=== PATIENT | female | born 1955 | race Caucasian/White ===

== ENCOUNTER → 2016-10-19 | Outpatient (CLI) | payer BC ==
--- NOTE | 2016-10-20 08:04 | MM ---
Reason for exam: screening (asymptomatic). Last mammogram was performed 1 year ago. History: Patient is postmenopausal. Family history of premenopausal breast cancer in mother at age 32. Benign US breast aspiration single RT of the right breast, October 19, 2015. Benign left mammotome panel of the left breast, September 15, 2006. Physical Findings: A clinical breast exam by your physician is recommended on an annual basis and results should be correlated with mammographic findings. MG Screening Mammo w CAD Bilateral CC and MLO view(s) were taken. Prior study comparison: October 19, 2015, right breast MG diagnostic mammo RT wo CAD. September 23, 2015, bilateral MG 3d screening mammo w/cad. There are scattered fibroglandular densities. Finding: There are typically benign grouped/clustered calcifications in the left breast. Previous ultrasound biopsy in the right and left breast. Increase in number of calcifications since October 19, 2015 and September 23, 2015. ASSESSMENT: Probably benign, BI-RAD 3 RECOMMENDATION: Follow-up diagnostic mammogram of the left breast in 6 months.
== END | disposition home or self-care (01) ==
LOC: RADMAMWWP 08:05
PROVIDERS: ATTEND Obstetrics & Gynecology
DX: Z12.31 Encounter for screening mammogram for malignant neoplasm of breast (principal)

== ENCOUNTER → 2017-04-21 | Outpatient (CLI) | payer BC ==
--- NOTE | 2017-04-21 09:29 | MM ---
Reason for exam: follow-up at short interval from prior study. Last mammogram was performed 6 months ago. History: Patient is postmenopausal. Family history of premenopausal breast cancer in mother at age 32. Benign US breast aspiration single RT of the right breast, October 19, 2015. Benign left mammotome panel of the left breast, September 15, 2006. Physical Findings: Nurse did not find any significant physical abnormalities on exam. MG Diagnostic Mammo LT w CAD CC, MLO, ML, CC with magnification, and ML with magnification view(s) were taken of the left breast. Prior study comparison: October 19, 2016, bilateral MG screening mammo w CAD. September 23, 2015, bilateral MG 3d screening mammo w/cad. The breast tissue is heterogeneously dense. This may lower the sensitivity of mammography. On magnification views scattered benign appearing calcifications, no suspicious groups. These results were verbally communicated with the patient and result sheet given to the patient on 04/21/17. ASSESSMENT: Benign, BI-RAD 2 RECOMMENDATION: Return to routine screening mammogram schedule for both breasts. Back on schedule for October 2017.
== END | disposition home or self-care (01) ==
LOC: RADMAMWWP 07:42
PROVIDERS: ATTEND Obstetrics & Gynecology
DX: R92.8 Other abnormal and inconclusive findings on diagnostic imaging of breast (principal)

== ENCOUNTER → 2017-10-20 | Outpatient (CLI) | payer BC ==
--- NOTE | 2017-10-23 11:05 | MM ---
Reason for exam: screening (asymptomatic). Last mammogram was performed 6 months ago. History: Patient is postmenopausal. Family history of premenopausal breast cancer in mother at age 32. Benign US breast aspiration single RT of the right breast, October 19, 2015. Benign left mammotome panel of the left breast, September 15, 2006. Physical Findings: A clinical breast exam by your physician is recommended on an annual basis and results should be correlated with mammographic findings. MG Screening Mammo w CAD Bilateral CC and MLO view(s) were taken. Prior study comparison: April 21, 2017, left breast MG diagnostic mammo LT w CAD. October 19, 2016, bilateral MG screening mammo w CAD. The breast tissue is heterogeneously dense. This may lower the sensitivity of mammography. Finding: There are typically benign round calcifications in both breasts. Previous mammotome biopsy in the right and left breast. There is no discrete abnormality. ASSESSMENT: Benign, BI-RAD 2 RECOMMENDATION: Routine screening mammogram of both breasts in 1 year.
== END | disposition home or self-care (01) ==
LOC: RADMAMWWP 07:47
PROVIDERS: ATTEND Family Medicine
DX: Z12.31 Encounter for screening mammogram for malignant neoplasm of breast (principal)
CPT/HCPCS: 77067

== ENCOUNTER → 2018-11-08 | Outpatient (CLI) | payer BC ==
--- NOTE | 2018-11-09 10:04 | MM ---
Reason for exam: screening (asymptomatic). Last mammogram was performed 1 year and 1 month ago. History: Patient is postmenopausal. Family history of breast cancer in maternal aunt and premenopausal breast cancer in mother at age 32. Benign US breast aspiration single RT of the right breast, October 19, 2015. Benign left mammotome panel of the left breast, September 15, 2006. Physical Findings: A clinical breast exam by your physician is recommended on an annual basis and results should be correlated with mammographic findings. MG Screening Mammo w CAD Bilateral CC and MLO view(s) were taken. Prior study comparison: October 20, 2017, bilateral MG screening mammo w CAD. April 21, 2017, left breast MG diagnostic mammo LT w CAD. The breast tissue is heterogeneously dense. This may lower the sensitivity of mammography. No suspicious abnormality. Bilateral biopsy markers noted. ASSESSMENT: Negative, BI-RAD 1 RECOMMENDATION: Routine screening mammogram of both breasts in 1 year.
== END ==
LOC: RADMAMWWP 07:50
PROVIDERS: ATTEND Family Medicine
DX: Z12.31 Encounter for screening mammogram for malignant neoplasm of breast (principal)
CPT/HCPCS: 77067

== ENCOUNTER → 2019-11-12 | Outpatient (CLI) | payer BC ==
--- NOTE | 2019-11-13 11:21 | MM ---
Reason for exam: screening (asymptomatic). Last mammogram was performed 1 year ago. History: Patient is postmenopausal. Family history of breast cancer in maternal aunt and premenopausal breast cancer in mother at age 32. Benign US breast aspiration single RT of the right breast, October 19, 2015. Benign left mammotome panel of the left breast, September 15, 2006. Physical Findings: A clinical breast exam by your physician is recommended on an annual basis and results should be correlated with mammographic findings. MG Screening Mammo w CAD Bilateral CC and MLO view(s) were taken. Prior study comparison: November 08, 2018, bilateral MG screening mammo w CAD. October 20, 2017, bilateral MG screening mammo w CAD. The breast tissue is heterogeneously dense. This may lower the sensitivity of mammography. There is a 7mm spiculated left upper outer quadrant anterior depth mass. Superior right middle depth asymmetry. Bilateral biopsy markers noted. ASSESSMENT: Incomplete: need additional imaging evaluation, BI-RAD 0 RECOMMENDATION: Special view mammogram of both breasts. If lesion persists on supplemental views, image directed ultrasound is recommended. [facility] will attempt to contact patient to return for supplemental views and ultrasound if indicated.
== END | disposition home or self-care (01) ==
LOC: RADMAMWWP 07:54
PROVIDERS: ATTEND Family Medicine
DX: Z12.31 Encounter for screening mammogram for malignant neoplasm of breast (principal)
CPT/HCPCS: 77067

== ENCOUNTER → 2019-11-22 | Outpatient (CLI) | payer BC ==
--- NOTE | 2019-11-22 10:41 | MM ---
Reason for exam: additional evaluation requested from abnormal screening. Last mammogram was performed less than 1 month ago. History: Patient is postmenopausal. Family history of breast cancer in maternal aunt and premenopausal breast cancer in mother at age 32. Benign US breast aspiration single RT of the right breast, October 19, 2015. Benign left mammotome panel of the left breast, September 15, 2006. Physical Findings: Nurse did not find any significant physical abnormalities on exam. MG Work Up Mamm w CAD BILAT Bilateral spot compression MLO and LM view(s) were taken. Spot compression CC view(s) were taken of the left breast. Prior study comparison: November 12, 2019, bilateral MG screening mammo w CAD. November 08, 2018, bilateral MG screening mammo w CAD. The breast tissue is heterogeneously dense. This may lower the sensitivity of mammography. There is a spiculated 1.0 x 0.9cm left upper outer quadrant mass 4cm from nipple. Benign appearing calcifications in the left breast. The previously seen abnormality resolves on additional views and appears as fibroglandular tissue compatible with summation on the right breast. Left biopsy marker noted. These results were verbally communicated with the patient and result sheet given to the patient on 11/22/19. ASSESSMENT: Incomplete: need additional imaging evaluation, BI-RAD 0 RECOMMENDATION: Ultrasound of the left breast.
--- NOTE | 2019-11-22 10:49 | USB ---
Reason for exam: additional evaluation requested from abnormal screening. History: Patient is postmenopausal. Family history of breast cancer in maternal aunt and premenopausal breast cancer in mother at age 32. Benign US breast aspiration single RT of the right breast, October 19, 2015. Benign left mammotome panel of the left breast, September 15, 2006. US Breast Workup Limited LT Left limited breast ultrasound including focal area of concern, retroareolar and axilla demonstrates a 0.9 x 0.8 x 0.7cm irregular, solid lesion at 1 o'clock. No suspicious left axillary adenopathy. These results were verbally communicated with the patient and result sheet given to the patient on 11/22/19. ASSESSMENT: Highly suggestive of malignancy, BI-RAD 5 RECOMMENDATION: Ultrasound core biopsy of the left breast. Called Dr. Almazan's office with mammographic findings and has scheduled an appointment for the patient for 12/20/19 at 3:[address] Lim. Biopsy scheduled for 12/23/19 at 8:00. PRELIMINARY REPORT CALLED AND FAXED TO DR. LIM ON 11/22/19.
== END | disposition home or self-care (01) ==
LOC: RADMAMWWP 08:16
PROVIDERS: ATTEND Family Medicine
DX: R92.8 Other abnormal and inconclusive findings on diagnostic imaging of breast (principal)
CPT/HCPCS: 77066

== ENCOUNTER → 2019-12-10 | Outpatient (CLI) | payer BC ==
[2019-12-10 09:50] VITALS: BP 127/81; PULSE 96; RESP 18; TEMP 97.6
--- NOTE | 2019-12-10 10:27 | P.GSHP ---
History of Present Illness H&P Date: 12/10/19 Chief Complaint: Abnormal radiograph left breast Stormy is a 64-year-old white female [place] [address]. This revealed a 7mm left upper outer quadrant lession the patient was recommended to have additional imaging performed. No lesions [place] [address] she had additional workup which revealed a spiculated 1 x 0.9 cm lesion in the left upper outer quadrant 4 cm from the nipple. An ultrasound was performed on the same day which revealed the same lesion which was considered suspicious and biopsy was recommended. The patietn does not feel anything of concern in her breast. The patients last mamm ogram was a year ago and she states it was nonworrisome. Family History: mother: bilateral breast cancer, cervical cancer, Burkits lymphoma maternal aunt: breast cancer Hormonal History: menarche: 13 , 1 misscarrage, first born at 23, breast fed: no menoapuse: 51 BCP: 10 years hormones: none Surgical History: 1. tubal ligation Medical History: none Social History: smoke: 1 1/2 PPD since 17 alcohol: twice a week/4 beers drugs: none - Constitutional Constitutional: Reports night sweats - EENT Eyes: denies blurred vision, denies pain Ears: deny: decreased hearing, tinnitus Ears, nose, mouth and throat: Denies headache, Denies sore throat - Breasts Breasts: bilateral: as per HPI - Cardiovascular Cardiovascular: Denies chest pain, Denies shortness of breath - Respiratory Comment: smoker/ bronchitis Respiratory: Denies cough, Denies 7 - Gastrointestinal Gastrointestinal: Denies abdominal pain, Denies diarrhea, Denies nausea, Denies vomiting - Genitourinary (Female) Genitourinary: Denies dysuria, Denies hematuria - Menstruation Menstruation: Reports postmenopausal - Musculoskeletal Musculoskeletal: Denies myalgias - Integumentary Integumentary: Denies pruritus, Denies rash - Neurological Neurological: Denies numbness, Denies weakness - Psychiatric Psychiatric: Reports anxiety, Denies depression - Endocrine Endocrine: Denies fatigue, Denies weight change - Hematologic/Lymphatic Comment: none - Allergic/Immunologic Comment: none Allergic/Immunologic: Reports as per HPI Past Medical History History of Any Multi-Drug Resistant Organisms: None Reported Smoking Status: Current every day smoker Medications and Allergies Home Medications Medication Instructions Recorded Confirmed Type ALPRAZolam [Xanax] 0.5 mg PO BID PRN 12/10/19 12/10/19 History Allergies Allergy/AdvReac Type Severity Reaction Status Date / Time No Known Allergies Allergy Verified 12/10/19 09:50 Surgical - Exam Vital Signs Temp Pulse Resp BP Pulse Ox 97.6 F 96 18 127/81 97 12/10/19 09:46 12/10/19 09:46 12/10/19 09:46 12/10/19 09:46 12/10/19 09:46 BMI 26.4 - General well developed, well nourished, no distress - Eyes normal ocular movement - ENT no hearing loss, no congestion - Neck no masses, trachea midline - Respiratory normal respiratory effort, clear to auscultation - Cardiovascular Rhythm: regular Heart Sounds: normal: S1, S2 - Abdomen Abdomen: soft, non tender, no guarding, no rigid, no rebound - Integumentary normal turgor - Neurologic no disoriented, no combative - Musculoskeletal normal gait - Psychiatric oriented to time, oriented to person, oriented to place, speech is normal, memory intact breast exam: Bra: 40B inspection: no nipple inversion or lesions of concern Palpation: right breast: Multi-positional exam fibrocystic changes, no dominant masses or nodules of concern Right axilla: No adenopathy of concern left breast: Multiple positional exam increased fullness in the upper outer quadrant. Left axilla: No adenopathy of concern Results Abnormal mammogram left breast, abnormal ultrasound left breast Assessment and Plan Assessment: Impression: 1. Abnormal left breast mammogram 2. Abnormal left breast ultrasound 3. Palpable mass/fullness left breast 4. History of tobacco use/bronchitis 5. Anxiety Plan: 1. Ultrasound-guided core biopsy left breast 2. Follow up after results of ultrasound core biopsy available Risks and benefits of procedure discussed with the patient. She understands and wishes to proceed. Risks include but are not limited to bleeding, infection, reaction to the anesthetic. The patient is going to be called next week with results of the biopsy. Secondary to the concerns regarding wright virus the appointment. She understands that because this is BIRADS 5 if the diagnosis is not a cancer she will be scheduled for needle local excisional biopsy of the area of concern. If this is a cancer it appears that there is a T1 lesion and she will be scheduled for a teleconference with medical oncology/surgery as soon as safe to do so secondary to the coronal virus situation. CC: Dr. Matias Noble Encounter 45 minutes, > 50% of time in planning and counselling. Time with Patient: Greater than 30
== END | disposition home or self-care (01) ==
LOC: WWCWWP 09:32
PROVIDERS: ATTEND Surgery
DX: Z53.9 Procedure and treatment not carried out, unspecified reason (principal)

== ENCOUNTER → 2019-12-11 | Day surgery (SDC) | payer BC ==
[2019-12-11 10:03] VITALS: RESP 16; TEMP 98
--- NOTE | 2019-12-11 11:31 | USB ---
EXAMINATION TYPE: US biopsy breast VAD LT, MG diagnostic mammo LT wo CAD DATE OF EXAM: 12/11/2019 CLINICAL HISTORY: R92.8 Abnormal Mammogram. Abnormal ultrasound. TECHNIQUE: Ultrasound guided core biopsy of left breast with clip placement and follow-up diagnostic left breast mammogram. COMPARISON: Mammogram and ultrasound November 22, 2019 and older studies. FINDINGS: The procedure of ultrasound guided core biopsy was explained to the patient. Benefits, alternatives, and risks were discussed. An informed consent was then obtained. The patient was placed in supine positioning for imaging and for the procedure. The overlying skin was prepped and draped in usual sterile fashion. Lidocaine was used as anesthetic into the skin and subcutaneous tissue up to area of concern in the left breast. Lidocaine with epinephrine is used as anesthetic in the deeper tissue. Under ultrasound guidance, a vacuum assisted biopsy gun device was used to obtain 4 core samples. Following this, a biopsy clip was left in lesion. The patient tolerated the procedure well without any immediate complication. The patient was kept in the radiology department for short stay after the procedure and then discharged home in stable condition. Post procedure mammogram shows successful deployment of clip corresponding to area of concern on mammogram anterior depth upper outer aspect spiculated area. IMPRESSION: Successful, uncomplicated ultrasound guided core biopsy of area of concern in the left breast, full pathology results to follow. Intermediate to high index of suspicion noted at time of procedure. Pathology Results: Malignant LEFT BREAST LESION AT ONE O'CLOCK, NEEDLE CORE BIOPSY: Infiltrating moderately differentiated (Chiquita Grade 2) ductal carcinoma of the breast in a background of intermediate grade DCIS with focal necrosis. See Surgical Pathology Cancer Case Summary. In order to differentiate the lesion as ductal adenocarcinoma, an appropriately controlled E-Cadherin stain is examined. The tumor is E-Cadherin postive, confirming ductal differentiation. Recommendation Surgical consult of the left breast. YNESD
[2019-12-11 11:39] VITALS: BP 127/84; PULSE 80
== END ==
LOC: RADUSWWP 09:40
PROVIDERS: ATTEND Surgery
DX: C50.912 Malignant neoplasm of unspecified site of left female breast (principal); Z17.0 Estrogen receptor positive status [ER+]
CPT/HCPCS: 88305; 88342; 88341; 77065; 19083; A4648; J2001

== ENCOUNTER → 2019-12-24 | Outpatient (CLI) | payer BC ==
--- NOTE | 2019-12-24 15:15 | P.PN ---
Progress Note - Text Progress Note Date: 12/24/19 teleconference regarding core breast biopsy results, stage 1A left breast cancer Stormy is a 64 -year-old white female who on a routine mammogram was noted to have an area of concern in the left breast. Core biopsy revealed a grade 2 T1 N0 ER positive [place] negative G2 HER-2 negative stage IA invasive ductal carcinoma with ductal carcinoma in situ. The patient post procedure does not have any complaints related to the procedure. I have discussed the surgical options with the patient which range from lumpectomy sentinel node biopsy to possible axillary node dissection, or mastectomy. The patient has a positive family history of breast cancer in her mother having had bilateral breast cancers and a maternal aunt with breast cancer. She is requesting genetic testing. The patient has a present appointment with medical oncology January 08. In the pericolic area she would be considered a good candidate for surgical intervention. However in the colon with daams pandemic area she is considered an [employer] breast surgeons B1 patient and based on her resources she may undergo neoadjuvant chemotherapy. Additionally if it's possible to get an Oncotype test performed she may benefit from some neoadjuvant chemotherapy depending on the results. Her case will be presented at tumor Board. Impression/Plan: 1. Stage I a left breast cancer 2. Family history of breast cancer 3. [place] breast [employer] priority B1, consider neoadjuvant hormonal therapy and/or neoadjuvant chemotherapy depending on Oncotype DX score 4. Presentation at tumor board 5. Appointment here following restrictions being listed in our clinic to see patient secondary to the cold pandemic CC: Dr. Matias Almazan encounter 45 minutes
== END | disposition home or self-care (01) ==
LOC: WWCWWP 14:41
PROVIDERS: ATTEND Surgery
DX: Z53.9 Procedure and treatment not carried out, unspecified reason (principal)

== ENCOUNTER → 2020-01-16 | Outpatient (CLI) | payer BC ==
[2020-01-16 10:28] VITALS: BP 135/94; PULSE 86; RESP 18; TEMP 97.7
--- NOTE | 2020-01-16 11:06 | P.PN ---
Subjective Progress Note Date: 01/16/20 Principal diagnosis: left breast cancer Stage IB Stormy is a 64-year-old white female [place] [address]. This revealed a 7mm left upper outer quadrant lession the patient was recommended to have additional imaging performed. No lesions [place] [address] she had additional workup which revealed a spiculated 1 x 0.9 cm lesion in the left upper outer quadrant 4 cm from the nipple. An ultrasound was performed on the same day which revealed the same lesion which was considered suspicious and biopsy was recommended. The patient does not feel anything of concern in her breast. The patients last mammogram pr ior to this was a year ago and she states it was nonworrisome. She had a core biopsy done on 12-11-19, this revealed infiltrating moderately differentiated ductal carcinoma of the left breast. This was ER positive SD negative grade 2 HER-2 negative. It is a stage IA. She was subsequently seen by medical oncology and her case was presented at tumor board. It was felt that we should proceed with surgical intervention first and further recommendation to follow this. She did well with the biopsy. Family History: mother: bilateral breast cancer, cervical cancer, Burkits lymphoma maternal aunt: breast cancer Hormonal History: menarche: 13 , 1 misscarrage, first born at 23, breast fed: no menoapuse: 51 BCP: 10 years hormones: none Surgical History: 1. tubal ligation Medical History: none Social History: smoke: 1 1/2 PPD since 17 alcohol: twice a week/4 beers drugs: none - Constitutional Constitutional: Reports night sweats - EENT Eyes: denies blurred vision, denies pain Ears: deny: decreased hearing, tinnitus Ears, nose, mouth and throat: Denies headache, Denies sore throat - Breasts Breasts: bilateral: as per HPI - Cardiovascular Cardiovascular: Denies chest pain, Denies shortness of breath - Respiratory Comment: smoker/ bronchitis Respiratory: Denies cough, Denies 7 - Gastrointestinal Gastrointestinal: Denies abdominal pain, Denies diarrhea, Denies nausea, Denies vomiting - Genitourinary (Female) Genitourinary: Denies dysuria, Denies hematuria - Menstruation Menstruation: Reports postmenopausal - Musculoskeletal Musculoskeletal: Denies myalgias - Integumentary Integumentary: Denies pruritus, Denies rash - Neurological Neurological: Denies numbness, Denies weakness - Psychiatric Psychiatric: Reports anxiety, Denies depression - Endocrine Endocrine: Denies fatigue, Denies weight change - Hematologic/Lymphatic Comment: none - Allergic/Immunologic Comment: none Allergic/Immunologic: Reports as per HPI Past Medical History History of Any Multi-Drug Resistant Organisms: None Reported Smoking Status: Current every day smoker Medications and Allergies Home Medications Medication Instructions Recorded Confirmed Type ALPRAZolam [Xanax] 0.5 mg PO BID PRN 12/10/19 12/10/19 History Allergies Allergy/AdvReac Type Severity Reaction Status Date / Time No Known Allergies Allergy Verified 12/10/19 09:50 Objective - Vital Signs Vital signs: Vital Signs Temp 97.7 F 01/16/20 10:25 Pulse 86 01/16/20 10:25 Resp 18 01/16/20 10:25 BP 135/94 01/16/20 10:25 Pulse Ox 98 01/16/20 10:25 Intake & Output 01/15/20 01/16/20 01/16/20 18:59 06:59 18:59 Weight 70.76 kg - Exam BMI 27.6 - Constitutional General appearance: Present: average body habitus - EENT Eyes: Present: EOMI ENT: Present: hearing grossly normal - Respiratory Respiratory: bilateral: CTA - Cardiovascular Rhythm: regular Heart sounds: normal: S1, S2 - Integumentary Integumentary Comment(s): no infection or hematoma at biopsy site Integumentary: Present: normal turgor - Musculoskeletal Musculoskeletal: Present: gait normal - Psychiatric Psychiatric: Present: A&O x's 3, appropriate affect, intact judgment & insight - Additional findings Additional findings: left breast site no evidence of infection or hematoma at site left breast slightly larger than right breast ptosis grade 3 bilateral Assessment and Plan Assessment: Impression: 1. left breast stage 1B 2. nicotine dependance Plan: 1. Left breast needle localization lumpectomy, probable bronchoplasty tissue transfer, sentinel node injection, sentinel node biopsy, possible axillary node dissection, probable to be done via a mastopexy incision 2. Patient to attempt to stop smoking between now and then 3. Medical clearance from Dr. Salazar Risks and benefits of the procedure been discussed with the patient. These include but are not limited to bleeding, infection, possible reaction to the anesthetic. She understands that if the margins were to be positive she will need to have additional surgery. She also understands there is a risk of not getting the correct spot at the time of lumpectomy. She understands that she could have a mastectomy plus or minus reconstruction but has opted for a lump ectomy. She understands the risks of sentinel node biopsy. She also understands the risk of flow axillary node dissection. Cc: Dr. Salazar encounter 40 minutes greater than 50% of time on planning and counselling Time with Patient: Greater than 30
== END | disposition home or self-care (01) ==
LOC: WWCWWP 10:12
PROVIDERS: ATTEND Surgery
DX: Z53.9 Procedure and treatment not carried out, unspecified reason (principal)

== ENCOUNTER → 2020-01-31 | Outpatient (CLI) | payer BC | END | disposition home or self-care (01) | LOC: LABWHC1 08:50 | PROVIDERS: ATTEND Surgery | DX: Z11.59 Encounter for screening for other viral diseases (principal) ==

== ENCOUNTER 2020-02-04 09:46 | Day surgery (SDC) | payer BC ==
[2020-02-03 09:27] VITALS: BMI 26.5
[~2020-02-04 09:46] MED LIST: DEXAMETHASONE SOD PHOSPHATE 10 MG/ML 1 ML VIAL IV ONE; HEPARIN SODIUM,PORCINE 5,000 UNIT/ML 1 ML VIAL SQ ONE; HYDROmorphone 0.5 MG/0.5 ML SYRINGE IVP PRN; LACTATED RINGERS 1,000 ML IV SCH; LIDOCAINE 1% (10MG/ML) FOR IV START INTRADERMA PRN; ONDANSETRON 4 MG/2 ML VIAL IVP ONE; Pre Op ABX Message 1 EACH MISC MISCELLANE ONE; SCOPOLAMINE 1.5MG/72HR PATCH TRANSDERM ONE
[2020-02-04] MEDS ORDERED: LIDOCAINE 1% INJ 10MG/ML (20 ML MDV) SQ ONE ×2 (11:08→13:31)
--- NOTE | 2020-02-04 12:04 | NM ---
EXAMINATION TYPE: NM sentinel node injection DATE OF EXAM: 02/04/2020 COMPARISON: Ultrasound-guided left breast biopsy dated 12/11/2019 and postprocedural mammogram HISTORY: Biopsy-proven left breast cancer TECHNIQUE AND FINDINGS: The procedure of sentinel lymph node injection was explained to the patient. The benefits, alternatives, and risks were discussed. An informed consent was then obtained. Prepr ocedural timeout was performed. Overlying skin is cleaned with sterile alcohol. Following this, 530 uCi Tc99m Tilmanocept was inject ed in the upper outer aspect of the left nipple intradermally. The patient tolerated the procedure well without any immediate complication. The patient was kept in the radiology department for short stay after the procedure and then taken to surgery for surgical p rocedure what is presumed intraoperative gamma probe will be used for sentinel lymph node detection. IMPRESSION: Left breast radiotracer injection for sentinel node localization as above.
--- NOTE | 2020-02-04 12:28 | P.NAPBC ---
NAPBC Queries - NAPBC Queries Was patient's case review presented at [facility] tumor board? If no, comment.: Yes Was patient's pathology reviewed at [facility]? If no, comment.: Yes Was breast conservation surgery offered? If no, comment.: Yes Was sentinel node biopsy offered? If no, comment.: Yes Was diagnosis confirmed by percutaneous core biopsy? If no, comment.: Yes Is patient mastectomy patient?: No Was a preop referral to reconstructive surgeon offered?: No Clinical Stage: stage IA
[2020-02-04] MEDS ORDERED: MIDAZOLAM 2 MG/2 ML VIAL ONE (12:43)
[2020-02-04] MEDS ORDERED: SUCCINYLCHOLINE CHLORIDE 100 MG/5 ML SYR IV ONE (12:43)
[2020-02-04] MEDS ORDERED: fentaNYL (PF) 50 MCG/ML 2 ML AMP ONE (12:43)
[2020-02-04] MEDS ORDERED: PROPOFOL 10 MG/ML 20 ML VIAL IV ONE (12:43)
[2020-02-04] MEDS ORDERED: LIDOCAINE 1% INJ 10MG/ML (20 ML MDV) ONE (12:43)
[2020-02-04] MEDS ORDERED: LACTATED RINGERS 1,000 ML IV ONE (14:27)
--- NOTE | 2020-02-04 15:03 | MM ---
EXAMINATION TYPE: MG pre op needle loc LT, MG surgical specimen LT DATE OF EXAM: 02/04/2020 COMPARISON: Left breast biopsy dated 12/11/2019 CLINICAL HISTORY: Biopsy-proven left breast cancer TECHNIQUE: Needle localization with wire placement and surgical excision of area of concern in the left breast. FINDINGS: The procedure of needle localization with wire placement and than surgical excision was explained to the patient. Benefits, alternatives, and risks were discussed. An informed consent was then obtained. Preprocedural timeout was performed. The shortest pathway for procedure was chosen. Shortest pathway was lateral medial approach. The overlying skin was prepped and draped in usual sterile fashion. 10 cc of 1% lidocaine was used as anesthetic into the skin and subcutaneous tissue up to the level of area of concern. A 5 cm needle was used. It was placed via a lateral to medial approach under mammographic guidance. Subsequent 90 degrees mammogram show the needle to be in satisfactory position relative to the targeted area. At this point, wire was placed and the needle was withdrawn. The wire was fixed to patient's skin. Images were marked for surgeon. The patient tolerated the procedure well without any immediate complication. The patient was kept in the radiology department for short stay after the procedure and then taken to surgery for surgical excision. Targeted coil-shaped biopsy marker and wire are identified in specimen mammogram. The patient was kept in hospital for short stay after the procedure and then discharged home in stable condition. IMPRESSION: Successful, uncomplicated needle localization with wire placement and surgical excision of a targeted coil-shaped biopsy marker denoting the biopsy-proven left breast cancer, full pathology results to follow. Pathology Results: Malignant A. SENTINEL LYMPH NODE, BIOPSY: Five lymph nodes negative for metastasis. CK7 and EDENILSON immunoperoxidase stains are confirmatory (controls appropriate). B. 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 See Surgical Pathology Cancer Case Summary. C. LEFT BREAST, NEW INFERIOR MARGIN: Benign breast with fibrocystic changes. Recommendation Oncologic follow up. [facility]
--- NOTE | 2020-02-04 15:22 | P.OP ---
Date of Procedure: 02/04/20 Preoperative Diagnosis: Left breast invasive ductal carcinoma Postoperative Diagnosis: Same Procedure(s) Performed: Left breast needle localization lumpectomy the crescent mastopexy incision, bronchoplasty tissue transfer, sentinel node biopsy Anesthesia: BERNARDA Surgeon: Josette Lim Estimated Blood Loss (ml): 25 IV fluids (ml): 1,300 Pathology: other (Breast tissue, sentinel node) Condition: stable Disposition: same day Indications for Procedure: Left breast invasive ductal carcinoma Operative Findings: Fibrofatty breast tissue Description of Procedure: Stormy is a 64-year-old white female who was diagnosed with a left breast invasive ductal carcinoma. The patient underwent localization of the area of concern in the left breast as well as left recurrent injection for the sentinel node identification. The patient was marked With a marking pen in the preoperative area. A crescent mastopexy was performed utilizing this incision to do the resection. Following this she was brought to the operating room where the left breast was prepped and draped in a sterile fashion as well as the left axilla following induction of general anesthesia. The axilla was approached initially. A appropriate greatest radioactivity in the axilla was identified. An incision was made and carried through the skin and subcutaneous tissue down to the axillary tissue. The area of the axilla was approached and the deep axillary tissue a radioactive lymph node was identified. This was removed using the Harmonic scalpel and electrocautery device. The 10 second count of the sentinel node was 2874. The background count was 12. Following this the axillary tissues were irrigated. After assured that hemostasis was attained the deep tissues were closed using 3-0 Vicryl suture. The skin was closed using 3-0 Vicryl stick suture subcutaneous. The patient had a 4-0 Monocryl subcuticular suture placed. The breast was then approached. A crescent skin incision superior to the area where it was performed. The apex of the crescent was approximately 2 cm above the ileal loop. The skin was de-epithelialized. The breast parenchyma was then entered at the superior margin of the crescent. It was dissected down to the area of the shaft of the needle. Surrounding tissue was excised being careful to maintain hemostasis using the electrocautery device and the Harmonic scalpel. Dissection was performed posteriorly down to the pectoralis muscle. Inferiorly additional tissue was obtained. The tissue was painted for orientation. Radiograph of the specimen revealed the area of concern was removed. Titanium clips were placed in the cavity. The tissues laterally and medially were then mobilized. Mobilization was approximately 6 cm x 4 cm both medially and laterally, for a total of 48 cm of tissue mobilized The tissue was then brought into the defect. The tissue was secured in place using 3-0 Vicryl suture. This was followed by closure of the mastopexy incision resulting in a lift of the nipple areolar complex buy about 2 cm, using 3-0 subcutaneous Vicryl suture followed by a 4-0 Monocryl suture in the subcuticular tissue. A nylon suture was then placed in the skin. The patient tolerated the procedure in stable condition. All instrument and sponge counts were correct at the end of the case.
--- NOTE | 2020-02-04 15:24 | P.DS ---
Providers Attending physician: Josette Lim Primary care physician: Pasquale Salazar Plan - Discharge Summary Discharge Rx Participant: Yes New Discharge Prescriptions: No Action ALPRAZolam [Xanax] 0.5 mg PO BID PRN PRN Reason: Anxiety Discharge Medication List ALPRAZolam [Xanax] 0.5 mg PO BID PRN 12/10/19 [History] Follow up Appointment(s)/Referral(s): Josette Lim MD [STAFF PHYSICIAN] - 1 Week Activity/Diet/Wound Care/Special Instructions: Do not drive until seen by Dr. Almazan Wear bra at all times May shower after 48 hours Discharge Disposition: HOME SELF-CARE
[2020-02-04 15:30] VITALS: TEMP 97.3
[2020-02-04 15:56] VITALS: RESP 16
[2020-02-04 16:26] VITALS: BP 144/85; PULSE 100
== END 2020-02-04 16:43 | disposition home or self-care (01) ==
LOC: OR 09:46
PROVIDERS: ATTEND Surgery
DX: C50.912 Malignant neoplasm of unspecified site of left female breast (principal); Z17.0 Estrogen receptor positive status [ER+]; N60.12 Diffuse cystic mastopathy of left breast; F41.9 Anxiety disorder, unspecified; F40.10 Social phobia, unspecified; F17.210 Nicotine dependence, cigarettes, uncomplicated; Z98.51 Tubal ligation status; Z80.3 Family history of malignant neoplasm of breast; Z80.49 Family history of malignant neoplasm of other genital organs; Z80.7 Family history of other malignant neoplasms of lymphoid, hematopoietic and related tissues; Z81.8 Family history of other mental and behavioral disorders; Z79.899 Other long term (current) drug therapy
CPT/HCPCS: 19301; 38525; 19316; 88342; 88307; 88341; 76098; 38792; A9520; J2250; J1644; J1100; J2405; J2001; J3010; J0330; J2704

== ENCOUNTER → 2020-02-13 | Outpatient (CLI) | payer BC ==
[2020-02-13 09:22] VITALS: BP 114/79; PULSE 102; RESP 16; TEMP 98.2
--- NOTE | 2020-02-13 09:29 | P.PN ---
Subjective Progress Note Date: 02/13/20 Principal diagnosis: Stage 1B left breast cancer Patient is a 64-year-old white female status post left breast lumpectomy and sentinel node biopsy on . Pathology revealed invasive ductal carcinoma grade 2 and high-grade DCIS, margins were negative for malignancy. 5 sentinel nodes were removed and all were negative for malignancy. She has been seen by medical and radiation oncology. An Oncotype DX test is being performed. She has been recommended to undergo radiation therapy. The size of the invasive carcinoma was 12 mm, the DCIS was 20 mm. All margins were negative although the DCIS was less than 1 mm from the lateral margin. She has no complaints related to the surgery. Objective - Vital Signs Vital signs: Intake & Output 02/12/20 02/13/20 02/13/20 18:59 06:59 18:59 Weight 71.668 kg - Exam BMI 28 - Constitutional General appearance: Present: average body habitus - EENT Eyes: Present: EOMI ENT: Present: hearing grossly normal - Neck Neck: Present: normal ROM - Respiratory Details: mild crackles at the lung bases - Cardiovascular Rhythm: regular Heart sounds: normal: S1, S2 - Integumentary Integumentary Comment(s): incision clean and dry - Musculoskeletal Musculoskeletal: Present: gait normal - Psychiatric Psychiatric: Present: A&O x's 3, appropriate affect, intact judgment & insight - Additional findings Additional findings: Breast examination: Right breast larger than left breast Left breast incision clean and dry no evidence of infection Assessment and Plan Assessment: Impression: 1. left breast stage 1B 2. Status post left breast lumpectomy and sentinel node biopsy margins negative/nodes negative 3. Patient seen by medical oncology Oncotype DX being performed 4. Radiation therapy appointment next month 5. Asymmetry of the breast will consider procedure for this in the future Plan: 1. Follow up here in 3 months 2. Suture removal 3. Await Oncotype DX results 4. Follow up with radiation oncology CC: Dr. Salazar
== END | disposition home or self-care (01) ==
LOC: WWCWWP 09:09
PROVIDERS: ATTEND Surgery
DX: Z53.9 Procedure and treatment not carried out, unspecified reason (principal)

== ENCOUNTER → 2020-06-12 | Outpatient (CLI) | payer BC ==
[2020-06-12 10:52] VITALS: BP 104/71; PULSE 110; RESP 12; TEMP 97.7
--- NOTE | 2020-06-12 11:23 | P.PN ---
Subjective Progress Note Date: 06/12/20 Principal diagnosis: stage 1B left breast cancer Patient is a 64-year-old white female status post left breast lumpectomy and sentinel node biopsy on 6219. Pathology revealed invasive ductal carcinoma grade 2 and high-grade DCIS, margins were negative for malignancy. 5 sentinel nodes were removed and all were negative for malignancy. The size of the invasive carcinoma was 12 mm, the DCIS was 20 mm. All margins were negative although the DCIS was less than 1 mm from the lateral margin. She has no complaints related to the surgery. She has been seen by medical and radiation oncology. An Oncotype DX test was performed, and 45% . She had TC x4. She has been recommended to undergo radiation therapy. She will start this next week. She will be placed on an anti-hormone medication after she completes her radiation therapy. Family history: Mother: Bilateral breast cancer, cervical cancer, Parkinson's lymphoma Maternal aunt: Breast cancer Hormonal history: Menarche: 13 , 1 miscarriage, first 2021, breast fed: No Menopause: 51 Intraoperative was: 10 years Hormones: Negative Surgical history: 1. Tubal ligation 2. Left breast lumpectomy sentinel node biopsy Medical history: Depression Social history: Smoke: 1-1/2 packs per day since 17 Alcohol: Twice a week, 4 beers Drugs: Negative Review of systems: Constitutional: Night sweats HEENT: Negative Breasts: As per HPI Cardiovascular: Negative Gastric: Smoker/bronchitis GI: Negative : Negative Musculoskeletal: Negative Integument: Negative Neurologic: Negative Psychiatric: Anxiety/deep depression Endocrine: Negative Hematologic: Negative ALLERGIES: Negative Objective - Vital Signs Vital signs: Vital Signs Temp 97.7 F 06/12/20 10:47 Pulse 110 H 06/12/20 10:47 Resp 12 06/12/20 10:47 BP 104/71 06/12/20 10:47 Pulse Ox 99 06/12/20 10:47 Intake & Output 06/11/20 06/12/20 06/12/20 18:59 06:59 18:59 Weight 74.389 kg - Exam BMI 29.1 - Constitutional General appearance: Present: average body habitus - EENT Eyes: Present: EOMI ENT: Present: hearing grossly normal - Neck Neck: Present: normal ROM - Respiratory Respiratory: bilateral: CTA - Cardiovascular Rhythm: regular Heart sounds: normal: S1, S2 - Gastrointestinal General gastrointestinal: Present: normal bowel sounds, soft - Integumentary Integumentary: Present: normal turgor - Musculoskeletal Musculoskeletal: Present: gait normal - Psychiatric Psychiatric: Present: A&O x's 3, appropriate affect, intact judgment & insight - Additional findings Additional findings: breast exam: BRA: 40C inspection: bilateral grade 2/3 ptosis, well healed scar left breast Palpation: Right breast: Multi-positional exam no dominant masses or nodules of concern fibrocystic changes Right axilla: No adenopathy of concern Left breast: Multi-positional exam well-healed scar no dominant masses or nodules of concern, postoperative changes, fibrocystic changes Left axilla: No adenopathy of concern Assessment and Plan Assessment: Impression: 1. Patient status post left breast lumpectomy and sentinel node biopsy stage IB left breast cancer 2. Patient has completed a course of chemotherapy, TC 4 3. Patient is getting ready to start radiation therapy 4. Patient will have formed Hormonal therapy following the radiation therapy 5. Anxiety/depression patient on Olanzapine Plan: 1. Follow-up in 3 months for physician exam 2. Radiation therapy 3. Patient to call if any questions or concerns CC: Dr. Salazar encounter 15 minutes, > 50% of time in planning and counselling
== END | disposition home or self-care (01) ==
LOC: WWCWWP 10:40
PROVIDERS: ATTEND Surgery
DX: Z53.9 Procedure and treatment not carried out, unspecified reason (principal)

== ENCOUNTER → 2020-09-08 | Outpatient (CLI) | payer BC ==
--- NOTE | 2020-09-08 17:03 | BD ---
EXAMINATION TYPE: Axial Bone Density DATE OF EXAM: 09/08/2020 COMPARISON: 05.27.2011 CLINICAL HISTORY: 65 YR OLD FEMALE....ICD-10 CODE: Z79.890 POST MENOPAUSAL Height: 62 Weight: 148 FRAX RISK QUESTIONS: Current Tobacco Use: YES RISK FACTORS HISTORY OF: HX OF LT ELBOW FX.... A TEEN Postmenopausal woman: YES AT AGE 51 Take estrogen and/or progesterone medications: NO AND IS ON ANASTROZOLE Hyperparathyroidism: NO Adrenal Insufficiency: NO MEDICATIONS: Additional Medications: XANAX, HX OF CHEMO AND RADIATION, LT BREAST CA, ANASTROZOLE Additional History: LT BREAST CA EXAM MEASUREMENTS: Bone mineral densitometry was performed using the [employer] System. Bone mineral density as measured about the Lumbar spine is: ----- L1-L4(G/cm2): 1.255 T Score Values are as follows: ----- L1: 0.4 ----- L2: 0.4 ----- L3: 0.9 ----- L4: 0.7 ----- L1-L4: 0.6 Bone mineral density has: Increased 10.4% since study of: 05.27.2011 Bone mineral density about the R hip (g/cm2): 0.950 Bone mineral density about the L hip (g/cm2): 1.004 T Score values are as follows: -----R Neck: -0.9 -----L Neck: -0.9 -----R Total: -0.5 -----L Total: 0.0 Bone mineral density has: Decreased -4.1% since study of: 05.27.2011 FRAX%s: THERE IS A 7.6% CHANCE FOR A MAJOR OSTEOPOROTIC FX AND A 0.8% FOR HIP....PROBABILITY FOR FX IN 10 YRS TIME IMPRESSION: Normal (Values between +1 and -1 indicate normal bone mass). Consider repeating this study in 5 year s or sooner if there is some new clinical indication. NOTE: T-SCORE=SD OF THE YOUNG ADULT MEAN.
== END | disposition home or self-care (01) ==
LOC: RADBDWWP 07:51
PROVIDERS: ATTEND Internal Medicine Hematology & Oncology
DX: C50.412 Malignant neoplasm of upper-outer quadrant of left female breast (principal); Z79.890 Hormone replacement therapy; Z92.21 Personal history of antineoplastic chemotherapy
CPT/HCPCS: 77080

== ENCOUNTER → 2020-09-11 | Outpatient (CLI) | payer BC ==
[2020-09-11 08:53] VITALS: BP 137/89; PULSE 78; RESP 18; TEMP 97.5
--- NOTE | 2020-09-11 09:10 | P.PN ---
Subjective Progress Note Date: 09/11/20 Principal diagnosis: stage IB left breast cancer stage 1B left breast cancer Patient is a 65-year-old white female status post left breast lumpectomy and sentinel node biopsy on 6219. Pathology revealed invasive ductal carcinoma grade 2 and high-grade DCIS, margins were negative for malignancy. 5 sentinel nodes were removed and all were negative for malignancy. The size of the invasive carcinoma was 12 mm, the DCIS was 20 mm. All margins were negative although the DCIS was less than 1 mm from the lateral margin. She has no complaints related to the surgery. She has been seen by medical and radiation oncology. An Oncotype DX test was performed, and 45% . She had TC x4. She completed radiation therapy in July 2020. She is taking any hormone therapy and tolerating this without difficulty. Family history: Mother: Bilateral breast cancer, cervical cancer, Parkinson's disease, lymphoma Maternal aunt: Breast cancer Hormonal history: Menarche: 13 , 1 miscarriage, first child born at 23, breast fed: No Menopause: 51 Hormones: Negative Surgical history: 1. Tubal ligation 2. Left breast lumpectomy sentinel node biopsy Medical history: Depression Social history: Smoke: 1-1/2 packs per day since 17 Alcohol: Twice a week, 4 beers Drugs: Negative Review of systems: Constitutional: Night sweats HEENT: Negative Breasts: As per HPI Cardiovascular: Negative Gastric: Smoker/bronchitis GI: Negative : Negative Musculoskeletal: Negative Integument: Negative Neurologic: Negative Psychiatric: Anxiety/deep depression Endocrine: Negative Hematologic: Negative ALLERGIES: Negative Objective - Vital Signs Vital signs: Vital Signs Temp 97.5 F L 09/11/20 08:50 Pulse 78 09/11/20 08:50 Resp 18 09/11/20 08:50 BP 137/89 09/11/20 08:50 Pulse Ox 99 09/11/20 08:50 Intake & Output 09/10/20 09/11/20 09/11/20 18:59 06:59 18:59 Weight 67.132 kg - Exam BMI 27.1 - Constitutional General appearance: Present: average body habitus - EENT Eyes: Present: EOMI ENT: Present: hearing grossly normal - Neck Neck: Present: normal ROM - Respiratory Respiratory: bilateral: CTA - Cardiovascular Rhythm: regular Heart sounds: normal: S1, S2 - Gastrointestinal General gastrointestinal: Present: normal bowel sounds, soft - Integumentary Integumentary: Present: normal turgor - Musculoskeletal Musculoskeletal: Present: gait normal - Psychiatric Psychiatric: Present: A&O x's 3, appropriate affect - Additional findings Additional findings: Breast exam: sports bra: 40 inspection: post-op changes left breast palpation: Right breast: Multi-positional exam fibrocystic changes, no dominant masses or nodules of concern Right axilla: No adenopathy of concern Left breast: Postop changes, no dominant masses or nodules of concern, no evidence of recurrent cancer Left axilla: No adenopathy of concern Assessment and Plan Assessment: Impression: 1. Stage I left breast cancer status post lumpectomy sentinel node biopsy, radiation therapy, and chemotherapy, she is presently on antiestrogen medication 2. No evidence of recurrent cancer 2. Depression under control Plan: 1. Patient is due for bilateral mammogram in November 2020 this will be done prior to next appointment 2. Follow-up in November after a bilateral mammogram; last one done on 11-22-19 3. Continue present antiestrogen therapy 4. Continue follow-up with medical and radiation oncology Cc: Dr. Salazar encounter 15 minutes, > 50% of time in planning and counselling
== END | disposition home or self-care (01) ==
LOC: WWCWWP 08:35
PROVIDERS: ATTEND Surgery
DX: Z53.9 Procedure and treatment not carried out, unspecified reason (principal)

== ENCOUNTER → 2020-11-24 | Outpatient (CLI) | payer BC ==
--- NOTE | 2020-11-24 11:04 | MM ---
Reason for exam: additional evaluation requested from prior study. Last mammogram was performed 11 months ago. History: Patient is postmenopausal and has history of breast cancer at age 64. Family history of breast cancer in maternal aunt and premenopausal breast cancer in mother at age 32. Malignant MG pre op needle loc LT of the left breast, February 04, 2020. Lumpectomy of the left breast, February 04, 2020. Malignant US biopsy breast VAD LT of the left breast, December 11, 2019. Benign US breast aspiration single RT of the right breast, October 19, 2015. Benign left mammotome panel of the left breast, September 15, 2006. Physical Findings: Nurse did not find any significant physical abnormalities on exam. MG Diagnostic Mammo w CAD JT Bilateral CC and MLO view(s) were taken. Prior study comparison: December 11, 2019, left breast MG diagnostic mammo LT wo CAD. November 22, 2019, bilateral MG work up mamm w CAD BILAT. November 08, 2018, bilateral MG screening mammo w CAD. October 20, 2017, bilateral MG screening mammo w CAD. October 19, 2016, bilateral MG screening mammo w CAD. Asymmetric breast tissue in left breast likely post operative. These results were verbally communicated with the patient and result sheet given to the patient on 11/24/20. ASSESSMENT: Probably benign, BI-RAD 3 RECOMMENDATION: Follow-up diagnostic mammogram of the left breast in 6 months.
== END ==
LOC: RADMAMWWP 08:43
PROVIDERS: ATTEND Surgery
DX: Z85.3 Personal history of malignant neoplasm of breast (principal); N64.89 Other specified disorders of breast; Z78.0 Asymptomatic menopausal state; Z80.3 Family history of malignant neoplasm of breast
CPT/HCPCS: 77066

== ENCOUNTER → 2020-12-03 | Outpatient (CLI) | payer BC ==
[2020-12-03 08:44] VITALS: BP 160/93; PULSE 78; RESP 18; TEMP 97.6
--- NOTE | 2020-12-03 09:08 | P.PN ---
Subjective Progress Note Date: 12/03/20 Principal diagnosis: stage IA left breast cancer stage IB left breast cancer stage 1B left breast cancer Patient is a 65-year-old white female status post left breast lumpectomy and sentinel node biopsy on 6219. Pathology revealed invasive ductal carcinoma grade 2 and high-grade DCIS, margins were negative for malignancy. 5 sentinel nodes were removed and all were negative for malignancy. The size of the invasive carcinoma was 12 mm, the DCIS was 20 mm. All margins were negative although the DCIS was less than 1 mm from the lateral margin. She has no complaints related to the surgery. She has been seen by medical and radiation oncology. An Oncotype DX test was performed, and 45% . She had TC x4. She completed radiation therapy in July 2020. She is taking antihormone therapy and tolerating this without difficulty. She is taking arimidex. She had a bilateral mammogram on 11-24-20 and was recommended to have a repeat left breast mammogram in 6 months. No lesions of concern were noted in the right breast. The patient is not complaining of any lumps masses or nodules of concern in either breast. Family history: Mother: Bilateral breast cancer, cervical cancer, Parkinson's disease, lymphoma Maternal aunt: Breast cancer Hormonal history: Menarche: 13 , 1 miscarriage, first child born at 23, breast fed: No Menopause: 51 Hormones: Negative Surgical history: 1. Tubal ligation 2. Left breast lumpectomy sentinel node biopsy Medical history: anxiety Social history: Smoke: 1-1/2 packs per day since 17 Alcohol: Twice a week, 4 beers Drugs: Negative Review of systems: Constitutional: Night sweats HEENT: Negative Breasts: As per HPI Cardiovascular: Negative Gastric: Smoker/bronchitis GI: Negative : Negative Musculoskeletal: Negative Integument: Negative Neurologic: Negative Psychiatric: Anxiety/deep depression Endocrine: Negative Hematologic: Negative ALLERGIES: Negative Objective - Vital Signs Vital signs: Vital Signs Temp 97.6 F 12/03/20 08:36 Pulse 78 12/03/20 08:36 Resp 18 12/03/20 08:36 BP 160/93 12/03/20 08:36 Pulse Ox 99 12/03/20 08:36 Intake & Output 12/02/20 12/03/20 12/03/20 18:59 06:59 18:59 Weight 68.039 kg - Exam BMI 27.4 - Constitutional General appearance: Present: average body habitus - EENT Eyes: Present: EOMI ENT: Present: hearing grossly normal - Neck Neck: Present: normal ROM - Respiratory Respiratory: bilateral: CTA - Cardiovascular Rhythm: regular Heart sounds: normal: S1, S2 - Gastrointestinal General gastrointestinal: Present: soft - Integumentary Integumentary: Present: normal turgor - Musculoskeletal Musculoskeletal: Present: gait normal - Psychiatric Psychiatric: Present: A&O x's 3, appropriate affect, intact judgment & insight - Additional findings Additional findings: Breast exam: BRA: 40C inspection: Well-healed scar left breast from prior surgery Palpation: Right breast: Multiple positional exam fibrocystic changes, mild asymmetry of the nipple areolar location related to her left breast surgery, no dominant masses or nodules was of concern Right axilla: No adenopathy of concern Left breast: Multiple positional exam fibrocystic changes, well-healed scar from prior surgery, no new dominant masses or nodules of concern Left axilla: No adenopathy of concern Fungal infection under both breasts greater on the left side Assessment and Plan Assessment: Impression: 1. Patient status post left breast lumpectomy and sentinel node biopsy no e vidence of recurrent cancer 2. Recent bilateral mammogram repeat left breast mammogram in 6 months 3. Fungal infection under both breasts with this patient prescription for nystatin 4. Patient continues on of limited access 5. Note from medical oncology [place] [id number] we'll continue to follow with medical oncology 6. Continue to follow with radiation oncology Plan: 1. Follow-up left breast mammogram in 6 months with physician exam here at that time 2. Bilateral mammogram in 1 year 3. Continue her Arimidex 4. Nystatin for fungal infection under the breast 5. follow up sooner if any concerns Cc: Dr. Salazar Diagnoses: 1. Stage IA left breast invasive ductal carcinoma/stable 2. Bilateral mammogram with recommendation of repeat left breast mammogram in 6 months 3. Bilateral fungal infection under the breast External note from Dr. Owens reviewed Review of mammogram 11-24-20 Ordering of repeat left breast mammogram in 6 months Patient ordered nystatin for treatment of fungal infection under the breast Patient will follow up here in 6 months for repeat left breast evaluation
== END ==
LOC: WWCWWP 08:31
PROVIDERS: ATTEND Surgery
DX: N61.0 Mastitis without abscess (principal); F32.9 Major depressive disorder, single episode, unspecified; F17.210 Nicotine dependence, cigarettes, uncomplicated; Z98.890 Other specified postprocedural states; Z85.3 Personal history of malignant neoplasm of breast; Z90.12 Acquired absence of left breast and nipple; Z80.3 Family history of malignant neoplasm of breast

== ENCOUNTER → 2021-06-02 | Outpatient (CLI) | payer SELFPAY ==
--- NOTE | 2021-06-02 08:31 | MM ---
Reason for exam: follow-up at short interval from prior study. Last mammogram was performed 6 months ago. History: Patient is postmenopausal and has history of breast cancer at age 64. Family history of breast cancer in maternal aunt and premenopausal breast cancer in mother at age 32. Malignant MG pre op needle loc LT of the left breast, February 04, 2020. Lumpectomy of the left breast, February 04, 2020. Malignant US biopsy breast VAD LT of the left breast, December 11, 2019. Benign US breast aspiration single RT of the right breast, October 19, 2015. Benign left mammotome panel of the left breast, September 15, 2006. Taking antineoplastic for 1 year beginning at age 65. Physical Findings: Nurse did not find any significant physical abnormalities on exam. MG 3D Diag Mammo W/Cad LT CC and MLO view(s) were taken of the left breast. Prior study comparison: November 24, 2020, bilateral MG diagnostic mammo w CAD JT. December 11, 2019, left breast MG diagnostic mammo LT wo CAD. The breast tissue is heterogeneously dense. This may lower the sensitivity of mammography. Post operative changes of lumpectomy and radiation therapy left breast. These results were verbally communicated with the patient and result sheet given to the patient on 06/02/21. ASSESSMENT: Benign, BI-RAD 2 RECOMMENDATION: Follow-up diagnostic mammogram of both breasts in 6 months.
== END | disposition home or self-care (01) ==
LOC: RADMAMWWP 07:31
PROVIDERS: ATTEND Surgery
DX: R92.2 Inconclusive mammogram (principal); Z85.3 Personal history of malignant neoplasm of breast; Z80.3 Family history of malignant neoplasm of breast; Z78.0 Asymptomatic menopausal state
CPT/HCPCS: 77061; 77065

== ENCOUNTER → 2021-07-16 | Outpatient (CLI) | payer MEDICARE, OTHER ==
[2021-07-16 08:56] VITALS: BP 158/87; PULSE 91; RESP 18; TEMP 97.9
--- NOTE | 2021-07-16 09:17 | P.PN ---
Subjective Progress Note Date: 07/16/21 Principal diagnosis: left breast stage 1 invasive ductal cancer stage I left breast cancer [id number]+[id number]- Patient is a 65-year-old white female status post left breast lumpectomy and sentinel node biopsy on 6219. Pathology revealed invasive ductal carcinoma grade 2 and high-grade DCIS, margins were negative for malignancy. 5 sentinel nodes were removed and all were negative for malignancy. The size of the invasive carcinoma was 12 mm, the DCIS was 20 mm. All margins were negative although the DCIS was less than 1 mm from the lateral margin. She has no complaints related to the surgery. She has been seen by medical and radiation oncology. An Oncotype DX test was performed, and 45% . She had TC x4. She completed radiation therapy in July 2020. She is taking antihormone therapy and tolerating this without difficulty. She is taking arimidex. She had a bilateral mammogram on 11-24-20 and was recommended to have a repeat left breast mammogram in 6 months. No lesions of concern were noted in the right breast. A repeat left breast mammogram was preformed on 06-02-21 which was benign BIRAD 2 and repeat bilateral mammogram in 6 months recommended. At this time the patient is not complaining of any lumps masses or nodules in either breast. She is not complaining of any nipple discharge or skin changes. [place] [id number] Owens are reviewed. She will be seen by him again in 2 weeks. Family history: Mother: Bilateral breast cancer, cervical cancer, Parkinson's disease, lymphoma Maternal aunt: Breast cancer Hormonal history: Menarche: 13 , 1 miscarriage, first child born at 23, breast fed: No Menopause: 51 Hormones: Negative Surgical history: 1. Tubal ligation 2. Left breast lumpectomy sentinel node biopsy Medical history: anxiety Social history: Smoke: 1-1/2 packs per day since 17 Alcohol: Twice a week, 4 beers Drugs: Negative Review of systems: Constitutional: Night sweats HEENT: Negative Breasts: As per HPI Cardiovascular: Negative Gastric: Smoker/bronchitis GI: Negative : Negative Musculoskeletal: Negative Integument: Negative Neurologic: Negative Psychiatric: Anxiety/deep depression Endocrine: Negative Hematologic: Negative ALLERGIES: Negative Objective - Vital Signs Vital signs: Vital Signs Temp 97.9 F 07/16/21 08:54 Pulse 91 07/16/21 08:54 Resp 18 07/16/21 08:54 BP 158/87 07/16/21 08:54 Pulse Ox 96 07/16/21 08:54 Intake & Output 07/15/21 07/16/21 07/16/21 18:59 06:59 18:59 Weight 65.771 kg - Constitutional General appearance: Present: cooperative - EENT Eyes: Present: EOMI ENT: Present: hearing grossly normal - Neck Neck: Present: normal ROM - Respiratory Respiratory: bilateral: CTA - Cardiovascular Rhythm: regular Heart sounds: normal: S1, S2 - Integumentary Integumentary: Present: normal turgor - Musculoskeletal Musculoskeletal: Present: gait normal - Psychiatric Psychiatric: Present: A&O x's 3, appropriate affect, intact judgment & insight - Additional findings Additional findings: Breast Exam: BRA: 40C inspection: Left breast slightly smaller than right breast after treatment Outpatient: Right breast: Multi-positional exam fibrocystic changes no dominant masses or nodules of concern Weighted axilla: No adenopathy of concern Left breast: Postop and radiation changes no discrete dominant masses or nodules of concern Left axilla: No adenopathy of concern Assessment and Plan Assessment: Impression: 1. Patient status post left breast lumpectomy sentinel node biopsy, radiation therapy, chemotherapy, and presently on Arimidex for stage I invasive ductal carcinoma no evidence of recurrent cancer at this time 2. Recent left breast mammogram 929-21 benign BIRADS 2 3. Fibrocystic breast changes 4. Family history of breast cancer Plan: 1. Continue follow-up with medical oncology 2. Follow-up here in 4 months 3. Bilateral mammogram in 6 months Cc: Dr. Salazar
== END ==
LOC: WWCWWP 08:42
PROVIDERS: ATTEND Surgery
DX: N60.12 Diffuse cystic mastopathy of left breast (principal); F17.210 Nicotine dependence, cigarettes, uncomplicated; F41.9 Anxiety disorder, unspecified; Z92.3 Personal history of irradiation; Z79.811 Long term (current) use of aromatase inhibitors; Z80.3 Family history of malignant neoplasm of breast; Z92.21 Personal history of antineoplastic chemotherapy

== ENCOUNTER → 2021-12-24 | Day surgery (SDC) | payer MEDICARE, OTHER ==
--- NOTE | 2021-12-24 13:21 | USB ---
EXAMINATION TYPE: US discontinued breast bx RT DATE OF EXAM: 12/24/2021 CLINICAL HISTORY: R92.8,ABN MAMM. TECHNIQUE: Ultrasound real-time linear array sonography is performed over the 12:00 position. COMPARISON: 12/07/2021 FINDINGS: There is a persistent tubular structure which is hypoechoic. No suspicious internal echogenicity is p resent. Findings appear compatible with a duct. Short-term follow-up can be performed. IMPRESSION: 1. Probably benign findings, BI-RADS 3. Recommendations: 1. Follow-up right breast ultrasound in 6 months. 2. Patient should continue monthly self breast exam.
== END ==
LOC: RADUSWWP 10:05
PROVIDERS: ATTEND Surgery
DX: R92.8 Other abnormal and inconclusive findings on diagnostic imaging of breast (principal)

== ENCOUNTER → 2022-06-27 | Outpatient (CLI) | payer MEDICARE, OTHER ==
--- NOTE | 2022-06-27 07:55 | USB ---
Reason for Exam: Follow-up at short interval from prior study. Patient History: Menarche at age 13. First Full-Term at age 21. Postmenopausal. Breast cancer, age 64. 02/04/2020, Lumpectomy on the Left side. 02/04/2020, Malignant Core Biopsy on the left side. 12/11/2019, Malignant Core Biopsy on the left side. 10/19/2015, Benign Cyst Aspiration on the right side. 09/15/2006, Benign Core Biopsy on the left side. 12/24/2021, US discontinued breast bx RT on the right side. Maternal aunt had breast cancer. Mother had breast cancer, age 32. Technique: Method: Targeted. Prior Study Comparison: 11/24/2020 Bilateral Diagnostic Mammogram, [facility]. 06/02/2021 Left Diagnostic Mammogram, [facility]. 12/07/2021 Bilateral Diagnostic Mammogram, [facility]. 12/07/2021 Right Diagnostic Ultrasound, [facility]. Findings: The axilla of the right breast and the retroareolar of the right breast were scanned. Area of concern at 12:00 was scanned with grayscale and color Doppler imaging. There remains a similar somewhat tubular structure measuring 11 x 3 mm which is predominantly anechoic. Findings favored represent dilated duct. Overall Assessment: Negative, BI-RAD 1 Management: Screening Mammogram of both breasts in 1 year. A clinical breast exam by your physician is recommended on an annual basis and results should be correlated with mammographic findings. This exam should not preclude additional follow-up of suspicious palpable abnormalities. ??Results were given to the patient verbally at the time of exam. Electronically signed and approved by: Bayron Rubin,
== END | disposition home or self-care (01) ==
LOC: RADUSWWP 07:08
PROVIDERS: ATTEND Surgery
DX: R92.8 Other abnormal and inconclusive findings on diagnostic imaging of breast (principal); Z78.0 Asymptomatic menopausal state; Z80.3 Family history of malignant neoplasm of breast

== ENCOUNTER → 2022-12-14 | Outpatient (CLI) | payer MEDICARE, OTHER ==
--- NOTE | 2022-12-15 16:42 | MM ---
Reason for Exam: Screening (asymptomatic). Last screening mammogram was performed 12 month(s) ago. Patient History: Menarche at age 13. First Full-Term at age 21. Postmenopausal. Breast cancer, left, age 64. 02/04/2020, Lumpectomy on the Left side. 02/04/2020, Malignant Core Biopsy on the left side. 12/11/2019, Malignant Core Biopsy on the left side. 10/19/2015, Benign Cyst Aspiration on the right side. 09/15/2006, Benign Core Biopsy on the left side. 12/24/2021, US discontinued breast bx RT on the right side. Maternal aunt had breast cancer. Mother had breast cancer, age 32. Prior Study Comparison: 11/24/2020 Bilateral Diagnostic Mammogram, [facility]. 06/02/2021 Left Diagnostic Mammogram, [facility]. 12/07/2021 Bilateral Diagnostic Mammogram, [facility]. Tissue Density: The breast tissue is heterogeneously dense. This may lower the sensitivity of mammography. Findings: Analyzed By CAD. Pattern appears stable. This is asymmetric with dense parenchymal tissue in the left breast, unchanged from comparison. Core marker is within the right breast. Surgical clips are within the left breast. No suspicious groups of microcalcifications, spiculated or lobular masses, architectural distortion or other secondary signs of malignancy are mammographically apparent. Overall Assessment: Benign, BI-RAD 2 Management: Screening Mammogram of both breasts in 1 year. A negative mammogram report should not preclude additional follow up of suspicious palpable abnormalities. Patient should continue monthly self breast exam. A clinical breast exam by your physician is recommended on an annual basis and results should be correlated with mammographic findings. Electronically signed and approved by: Glenn Rico D.O. Radiologis
== END | disposition home or self-care (01) ==
LOC: RADMAMWWP 06:58
PROVIDERS: ATTEND Surgery
DX: Z12.31 Encounter for screening mammogram for malignant neoplasm of breast (principal); Z78.0 Asymptomatic menopausal state; Z80.3 Family history of malignant neoplasm of breast; Z85.3 Personal history of malignant neoplasm of breast; Z98.890 Other specified postprocedural states
CPT/HCPCS: 77067

== ENCOUNTER → 2022-12-16 | Outpatient (CLI) | payer MEDICARE, OTHER ==
--- NOTE | 2022-12-16 09:16 | P.PN ---
Subjective Progress Note Date: 12/16/22 Principal diagnosis: left breast invasive ductal cancer 2019, stage I stage I left breast cancer invasive ductal cancer [id number]+Pr+Her2- Patient is a 65-year-old white female status post left breast lumpectomy and sentinel node biopsy on 6219. Pathology revealed invasive ductal carcinoma grade 2 and high-grade DCIS, margins were negative for malignancy. 5 sentinel nodes were removed and all were negative for malignancy. The size of the invasive carcinoma was 12 mm, the DCIS was 20 mm. All margins were negative although the DCIS was less than 1 mm from the lateral margin. She has no complaints related to the surgery. She has been seen by medical and radiation oncology. An Oncotype DX test was performed, and 45% . She had TC x4. She completed radiation therapy in July 2020. She is taking antihormone therapy and tolerating this without difficulty. She is taking arimidex. She had a bilateral mammogram on 12-14-22 which was BIRAD 2. At this time the patient is not complaining of any lumps masses or nodules in either breast. She is not complaining of any nipple discharge or skin changes. Note from 08-02-[address] Owens are reviewed. Family history: Mother: Bilateral breast cancer, cervical cancer, Parkinson's disease, lymphoma Maternal aunt: Breast cancer Hormonal history: Menarche: 13 , 1 miscarriage, first child born at 23, breast fed: No Menopause: 51 Hormones: Negative Surgical history: 1. Tubal ligation 2. Left breast lumpectomy sentinel node biopsy Medical history: anxiety Social history: Smoke: 1-1/2 packs per day since 17 Alcohol: Twice a week, 4 beers Drugs: Negative Review of systems: Constitutional: Night sweats HEENT: Negative Breasts: As per HPI Cardiovascular: Negative Gastric: Smoker/bronchitis GI: Negative : Negative Musculoskeletal: Negative Integument: Negative Neurologic: Negative Psychiatric: Anxiety/deep depression Endocrine: Negative Hematologic: Negative ALLERGIES: Negative Objective - Constitutional General appearance: Present: cooperative - EENT Eyes: Present: EOMI ENT: Present: hearing grossly normal - Neck Neck: Present: normal ROM - Respiratory Respiratory: bilateral: CTA - Cardiovascular Rhythm: regular Heart sounds: normal: S1, S2 - Gastrointestinal General gastrointestinal: Present: soft - Integumentary Integumentary: Present: normal turgor - Musculoskeletal Musculoskeletal: Present: gait normal - Psychiatric Psychiatric: Present: A&O x's 3, appropriate affect, intact judgment & insight - Additional findings Additional findings: Breast Exam: BRA: 40C inspection: Left breast slightly smaller than right breast after treatment Palpation: Right breast: Multi-positional exam fibrocystic changes no dominant masses or nodules of concern Right axilla: No adenopathy of concern Left breast: Postop and radiation changes no discrete dominant masses or nodules of concern Left axilla: No adenopathy of concern Assessment and Plan Assessment: Impression: 1. Patient status post left breast lumpectomy sentinel node biopsy, radiation therapy, chemotherapy, and presently on Arimidex for stage I invasive ductal carcinoma no evidence of recurrent cancer at this time 2. bilateral mammogram 12-14-22 BIRAD 2 3. Fibrocystic breast changes 4. Family history of breast cancer Plan: 1. Continue follow-up with medical oncology; continue arimidex 2. Follow-up here in 6 months, she has states that she will not follow up in 6 months. We will follow up in 1 year 3. Bilateral mammogram in 1 year Cc: Dr. Salazar
[2022-12-16 09:18] VITALS: BP 156/92; PULSE 88; RESP 18; TEMP 97.9
== END ==
LOC: WWCWWP 08:36
PROVIDERS: ATTEND Surgery
DX: C50.912 Malignant neoplasm of unspecified site of left female breast (principal); F17.210 Nicotine dependence, cigarettes, uncomplicated; R92.8 Other abnormal and inconclusive findings on diagnostic imaging of breast; N60.12 Diffuse cystic mastopathy of left breast; Z79.811 Long term (current) use of aromatase inhibitors; Z80.3 Family history of malignant neoplasm of breast; Z85.3 Personal history of malignant neoplasm of breast; Z92.3 Personal history of irradiation; F41.9 Anxiety disorder, unspecified

== ENCOUNTER → 2023-02-09 | Outpatient (CLI) | payer MEDICARE, OTHER ==
--- NOTE | 2023-02-09 19:02 | BD ---
EXAMINATION TYPE: Axial Bone Density DATE OF EXAM: 02/09/2023 CLINICAL HISTORY: 67 year old Female. ICD-10 CODE: C50.412 MALIG NEOPLASM OF UPPER-OUTER QUADRANT OF Height: 62 Weight: 166.6 FRAX RISK QUESTIONS: Alcohol (3 or more units per day): no Family History (Parent hip fracture): no Glucocorticoids (More than 3mos): no (Ex: prednisone, prednisolone, methylprednisolone, dexamethasone, and hydrocortisone). History of Fracture in Adulthood: no Secondary Osteoporosis: 1. Type 1 Diabetes: no 2. Hyperthyroidism: no 3. Menopause before 45: no 4. Malnutrition: no 5. Chronic liver disease: no Rheumatoid Arthritis: no Current Tobacco Use: yes RISK FACTORS HISTORY OF: Surgery to Spine/Hip(right/left)/Wrist (right/left): no Family History of Osteoporosis: no Active: no Diet low in dairy products/other sources of calcium: no Postmenopausal woman: yes Lost more than 2 inches in height since high school: no MEDICATIONS: Prednisone or other steroids: yes -for bronchitis How Lon week Additional History: EXAM MEASUREMENTS: Bone mineral densitometry was performed using the [employer] System. Bone mineral density as measured about the Lumbar spine is: ----- L1-L4(G/cm2): 1.202 T Score Values are as follows: ----- L1: 0.1 ----- L2: -0.6 ----- L3: 0.5 ----- L4: 0.6 ----- L1-L4: 0.2 Z Score Values are as follows: ----- L1: 1.3 ----- L2: 0.7 ----- L3: 1.7 ----- L4: 1.8 ----- L1-L4: 1.4 Bone mineral density has: decreased -4.2 % since study of: . Bone mineral density about the R hip (g/cm2): 0.941 Bone mineral density about the L hip (g/cm2): 0.976 T Score values are as follows: -----R Neck: -1.2 -----L Neck: -1.1 -----R Total: -0.5 -----L Total: -0.3 Z Score values are as follows: -----R Neck: 0.1 -----L Neck: 0.5 -----R Total: 0.5 -----L Total: 0.8 Bone mineral density has: decreased -1.8 % since study of: 1.5.2020 FRAX%s: The graph provided illustrates a 8.6% chance for a major osteoporotic fx and a 1.4% chance fo r the hips probability for fx in 10 years time. IMPRESSION: Osteopenia (T Score between -2.5 and -1). There is slightly increased risk of fracture and the patient may be considered for treatment. Re-Screen 2-5 years. NOTE: T-SCORE=SD OF THE YOUNG ADULT MEAN.
== END | disposition home or self-care (01) ==
LOC: RADBDWWP 07:51
PROVIDERS: ATTEND Internal Medicine Hematology & Oncology
DX: C50.412 Malignant neoplasm of upper-outer quadrant of left female breast (principal); M85.89 Other specified disorders of bone density and structure, multiple sites; F41.1 Generalized anxiety disorder; G47.00 Insomnia, unspecified; Z71.3 Dietary counseling and surveillance; Z78.0 Asymptomatic menopausal state
CPT/HCPCS: 77080

== ENCOUNTER → 2023-12-18 | Outpatient (CLI) | payer MEDICARE, OTHER ==
--- NOTE | 2023-12-18 09:57 | MM ---
Reason for Exam: Hx of breast cancer, conservation therapy. Last screening mammogram was performed 12 month(s) ago. Patient History: Menarche at age 13. First Full-Term at age 21. Postmenopausal. Breast cancer, left, age 64. Previous chest radiation therapy at age 64. Previous chemotherapy at age 64. 02/04/2020, Lumpectomy on the Left side. 02/04/2020, Malignant Core Biopsy on the left side. 12/11/2019, Malignant Core Biopsy on the left side. 10/19/2015, Benign Cyst Aspiration on the right side. 09/15/2006, Benign Core Biopsy on the left side. 12/24/2021, US discontinued breast bx RT on the right side. Maternal aunt had breast cancer. Mother had breast cancer, age 32. Prior Study Comparison: 10/20/2017 Bilateral Screening Mammogram, [facility]. 11/12/2019 Bilateral Screening Mammogram, [facility]. 12/11/2019 Left Diagnostic Mammogram, [facility]. 06/02/2021 Left Diagnostic Mammogram, [facility]. 12/07/2021 Bilateral Diagnostic Mammogram, [facility]. 12/14/2022 Bilateral MG screening mammo w CAD, [facility]. Tissue Density: The breasts are heterogeneously dense, which may obscure small masses. Findings: Analyzed By CAD. The pattern is stable. There is increased density within the postsurgical left breast compared to the right. Scattered surgical clips or markers are present. Benign-appearing scattered calcifications are present. There is some distortion within the anterior to mid right breast, this was present in 2021. No suspicious groups of microcalcifications, spiculated or lobular masses, architectural distortion or other secondary signs of malignancy are mammographically apparent. Overall Assessment: Benign, BI-RAD 2 Management: Diagnostic Mammogram of both breasts in 1 year. A negative mammogram report should not preclude additional follow up of suspicious palpable abnormalities. Patient should continue monthly self breast exam. A clinical breast exam by your physician is recommended on an annual basis and results should be correlated with mammographic findings. Electronically signed and approved by: Glenn Rico D.O. Radiologis
== END | disposition home or self-care (01) ==
LOC: RADMAMWWP 08:42
PROVIDERS: ATTEND Surgery
DX: R92.333 Mammographic heterogeneous density, bilateral breasts (principal); R92.1 Mammographic calcification found on diagnostic imaging of breast; Z85.3 Personal history of malignant neoplasm of breast; Z80.3 Family history of malignant neoplasm of breast; Z78.0 Asymptomatic menopausal state
CPT/HCPCS: 77066; G0279; 77062

== ENCOUNTER → 2024-12-27 | Outpatient (CLI) | payer MEDICARE, OTHER ==
--- NOTE | 2024-12-27 08:52 | MM ---
Reason for Exam: Screening (asymptomatic). Last screening mammogram was performed 12 month(s) ago. Patient History: Menarche at age 13. First Full-Term at age 21. Postmenopausal. Breast cancer, left, age 64. Previous chest radiation therapy at age 64. Previous chemotherapy at age 64. 02/04/2020, Lumpectomy on the Left side. 02/04/2020, Malignant Core Biopsy on the left side. 12/11/2019, Malignant Core Biopsy on the left side. 10/19/2015, Benign Cyst Aspiration on the right side. 09/15/2006, Benign Core Biopsy on the left side. 12/24/2021, US discontinued breast bx RT on the right side. Maternal aunt had breast cancer. Mother had breast cancer, age 32. Prior Study Comparison: 12/07/2021 Bilateral Diagnostic Mammogram, [facility]. 12/14/2022 Bilateral MG screening mammo w CAD, [facility]. 12/18/2023 Bilateral MG 3D diag mammo w/cad JT, [facility]. Tissue Density: The breasts are heterogeneously dense, which may obscure small masses. Findings: Analyzed By CAD. There is no suspicious group of microcalcifications or new suspicious mass in either breast. Overall Assessment: Benign, BI-RAD 2 Management: Screening Mammogram of both breasts in 1 year. . Patient should continue monthly self-breast exams. A clinical breast exam by your physician is recommended on an annual basis. This exam should not preclude additional follow-up of suspicious palpable abnormalities. Note on Ysabel scores and lifetime risk: 1. A Ysabel score greater than 3% is considered moderate risk. If this is the case, consider specialist referral to assess eligibility for a risk reducing agent. 2. If overall lifetime risk for the development of breast cancer is 20% or higher, the patient may qualify for future screening with alternating mammogram and breast MRI. [facility], , 12/27/2024 8:49 AM. Electronically signed and approved by: Maciel Akers M.D. Radiologis
== END | disposition home or self-care (01) ==
LOC: RADMAMWWP 08:05
PROVIDERS: ATTEND Internal Medicine Hematology & Oncology
DX: Z12.31 Encounter for screening mammogram for malignant neoplasm of breast (principal); R92.333 Mammographic heterogeneous density, bilateral breasts; C50.412 Malignant neoplasm of upper-outer quadrant of left female breast; G47.00 Insomnia, unspecified; F41.1 Generalized anxiety disorder; Z71.3 Dietary counseling and surveillance; Z80.3 Family history of malignant neoplasm of breast; Z78.0 Asymptomatic menopausal state
CPT/HCPCS: 77067